=== PATIENT | male | born 1965 | race Caucasian/White ===

== ENCOUNTER → 2022-01-26 08:58 | Outpatient (BNVA) | payer OTHER, SELFPAY | PROVIDERS: Visit Provider Family Medicine | DX: R73.03 Prediabetes (principal) | CPT/HCPCS: 80053; 80061; 83036; 85025 ==

== ENCOUNTER → 2022-08-01 15:13 | Outpatient (BNVA) | payer OTHER, SELFPAY | PROVIDERS: PCP Family Medicine; Visit Provider Family Medicine | DX: M25.562 Pain in left knee (principal); M19.011 Primary osteoarthritis, right shoulder | CPT/HCPCS: 73030; 73562 ==

== ENCOUNTER → 2023-11-09 11:18 | Outpatient (BNVA) | payer OTHER, SELFPAY | PROVIDERS: PCP Family Medicine; Visit Provider Family Medicine | DX: Z12.5 Encounter for screening for malignant neoplasm of prostate (principal); E66.9 Obesity, unspecified | CPT/HCPCS: 80053; 80061; 84153; 84439; 84443; 85025 ==